=== PATIENT | female | born 1970 | race Asian ===

== ENCOUNTER 2017-05-10 10:41 | Emergency (ER) | payer BC, OTHER ==
[2017-05-10 10:46] VITALS: BP 158/92; PULSE 77; TEMP 98.5; BMI 29.2
--- NOTE | 2017-05-10 12:24 | PDOC ---
History of Present Illness - General Chief Complaint: Injury Stated Complaint: INJURY Time Seen by Provider: 05/10/17 11:12 History Source: Patient Exam Limitations: No Limitations - History of Present Illness Initial Comments: 05/10/17 12:20 CHIEF COMPLAINT: Slip on wet floor yesterday, braced her fall with her left hand now with pain to left hand and left lateral lower leg. HISTORY OF PRESENT ILLNESS: Patient is a 47-year-old female, history of diabetes and hypertension reports yesterday was walking the floor was wet she slipped and fell instead of hitting her head she braced her fall with a left hand now with bruising noted to left palm and pain to dorsum of left third finger also with superficial pain on palpation to left lateral lower leg good range of motion to hip. Ambulatory without difficulty. Incident occurred at work which prompted her to come to ER. MEDS:[ See medication list] ALLERGIES: Cipro, Levaquin[] REVIEW OF SYSTEMS: GENERAL/CONSTITUTIONAL: Awake alert and oriented HEAD, EYES, EARS, NOSE AND THROAT: No change in vision. No facial edema, no bruising. NO active bleeding. Nares intact. RESPIRATORY: No cough, wheezing, or hemoptysis. CARDIAC: Denies chest pain, no shortness of breathe. MUSCULOSKELETAL: No spinal point tenderness, Good ROM to all four extremeties. NO CVA tenderness. [No] lateral neck pain. Pain to dorsum of left third finger, bruising noted to palm of hand. GI/: Denies abdominal pain, no nausea or vomiting, no bloody stool, no Hematuria. SKIN : Bruising to palm of left hand otherwise physical examination is unremarkable NEUROLOGIC: No loss of consciousness, no numbness or tingling. PHYSICAL EXAM: GENERAL: Awake and alert and oriented x3. EYES: The pupils are equal, round, and reactive to light, with clear, conjunctiva. Good extraocular movement. No nystagmus NOSE: No nasal trauma . Midface stable MOUTH: Teeth intact. EARS: The ear canals and tympanic membranes are normal without trauma. No drainage. NECK: No Lower cervical C-spine tenderness, no pain with chin to chest. CHEST: The lungs are clear without crackles, or wheezes. No subcutaneous emphysema. No crepitus. HEART: Heart is regular rhythm, with normal S1 and S2, no murmurs. ABDOMEN: The abdomen is soft and nontender with normal bowel sounds. There is no guarding or rebound. MUSCULOSKELETAL: No spinal point tenderness. No bruising or erythema. Pelvis stable. RECTAL: Patient refused. EXTREMITIES: Extremities are normal. No visible traumatic injury. NEUROLOGICAL:Mental status: The patient is oriented x3. No Generalized headache , Romberg [-] Cranial nerves: Cranial nerves II through XII are intact Motor: The upper extremities are 5 over 5 in all muscle groups. The lower extremities are 5 over 5 in all muscle groups. Sensation: Sensation is intact to light touch throughout. Cerebellar: Xzrbqa-ijxmqh-[id number] is normal in both upper extremities. Heel-knee- crocker is normal in both lower extremities. Reflexes: 2+ and symmetric in the upper and lower extremities. Gait: Normal. Heel and toe walking are normal. Tandem gait is normal. SKIN: uising to palm of left hand otherwise physical examination is unremarkable Past History - Past Medical History Allergies/Adverse Reactions: Allergies Allergy/AdvReac Type Severity Reaction Status Date / Time ciprofloxacin [From Cipro] Allergy Nausea Verified 05/10/17 10:46 ciprofloxacin HCl Allergy Nausea Verified 05/10/17 10:46 [From Cipro] levofloxacin [From Levaquin] Allergy DIARRHEA Verified 05/10/17 10:46 Home Medications: Ambulatory Orders Bupropion HCl [Wellbutrin -] 300 mg PO DAILY 08/01/14 Omeprazole [Prilosec] 40 mg PO DAILY 08/01/14 Valsartan [Diovan] 40 mg PO DAILY 09/13/14 Anemia: Yes (IRON DEFICIENCY.) COPD: No Diabetes: Yes GI Disorders: Yes (GERD) HTN: Yes - Suicide/Smoking/Psychosocial Hx Smoking Status: Yes Smoking History: Current every day smoker Have you smoked in the past 12 months: Yes Number of Cigarettes Smoked Daily: 6 Information on smoking cessation initiated: No 'Breaking Loose' booklet given: 09/13/14 Hx Alcohol Use: No Drug/Substance Use Hx: No Substance Use Type: None *Physical Exam - Vital Signs Last Vital Signs Temp Pulse Resp BP Pulse Ox 98.5 F 77 16 158/92 100 05/10/17 10:44 05/10/17 10:44 05/10/17 10:44 05/10/17 10:44 05/10/17 10:44 ED Treatment Course - RADIOLOGY Radiology Studies Ordered: Category Date Time Status HAND- LEFT [RAD] Stat Radiology 05/10/17 11:16 Completed Medical Decision Making - Medical Decision Making 05/10/17 12:23 A/P: Patient with mechanical fall yesterday on wet floor pain to hand and left lateral lower leg, hip is intact, no bruising noted to leg pain is superficial left hand with bruising noted to palm, sent for x-rays negative for acute fracture will DC patient home anti-inflammatories for pain and follow up as needed. *DC/Admit/Observation/Transfer Diagnosis at time of Disposition: Accidental fall, Hand pain, left - Discharge Dispostion Disposition: HOME Condition at time of disposition: Stable Admit: No - Referrals Referrals: Art Frank MD [Primary Care Provider] - Austen Carranza MD [Staff Physician] - - Patient Instructions Additional Instructions: Motrin for pain, recommend follow-up with orthopedics in one week if pain persists - Post Discharge Activity Forms/Work/School Notes: Back to Work
== END 2017-05-10 12:57 | disposition home or self-care (01) ==
LOC: JERFT 10:41
DX: M79.602 Pain in left arm (principal); W01.0XXA Fall on same level from slipping, tripping and stumbling without subsequent striking against object, initial encounter; Y93.89 Activity, other specified; Y92.9 Unspecified place or not applicable; F17.210 Nicotine dependence, cigarettes, uncomplicated; I10 Essential (primary) hypertension; E11.9 Type 2 diabetes mellitus without complications; K21.9 Gastro-esophageal reflux disease without esophagitis
CPT/HCPCS: 73130-TC-LR-FY; 99281-25

== ENCOUNTER 2023-08-11 11:53 | Emergency (ER) | payer BC ==
[2023-08-11 12:17] VITALS: RESP 19; BMI 30.2
[2023-08-11] MEDS: FAMOTIDINE 20 MG/50 ML IVPB 20 MG/50 ML MG IVPB ONE (13:45)
[2023-08-11] MEDS: ACETAMINOPHEN 1000 MG/100 ML BAG IVPB ONE (13:45)
[2023-08-11] MEDS: ONDANSETRON 4 MG/2 ML VIAL IVPUSH ONE (13:45)
[2023-08-11] MEDS: SODIUM CHLORIDE 1,000 ML IV STA ×2 (13:45→16:31)
[2023-08-11] MEDS ORDERED: ONDANSETRON 4 MG/2 ML VIAL ONE (13:52)
[2023-08-11] MEDS ORDERED: FAMOTIDINE 20 MG/50 ML IVPB 20 MG/50 ML MG IVPB ONE (13:52)
[2023-08-11] MEDS ORDERED: ACETAMINOPHEN INJECTION 100 ML IVPB ONE (13:52)
[2023-08-11 13:54] LABS: BASO % 0.1 % (0-2.0); EOS % 0.5 % (0-4.5); HEMATOCRIT 46.2 % (32.4-45.2); HEMOGLOBIN 15.6 GM/dL (10.7-15.3); LYMPH % 7.3 % (8-40); MCHC 33.7 g/dl (32.0-36.0); MEAN PLT VOLUME 8.7 fl (7.5-11.1); MONO % 5.5 % (3.8-10.2); NEUT % 86.6 % (42.8-82.8); PLATELET COUNT 226 10^3/uL (134-434); RBC 5.57 M/mm3 (3.60-5.2); RDW 14.2 % (11.6-15.6); VENOUS BASE EXCESS 2.8 mmol/L (-2-2); VENOUS O2 SATURATION 27.5 % (70-80); VENOUS PCO2 46.2 mmHg (38-52); VENOUS PH 7.404 (7.310-7.410); WHITE BLOOD COUNT 9.8 K/mm3 (4.0-10.0)
[2023-08-11 14:21] LABS: ALBUMIN 3.2 g/dl (3.4-5.0); CALCIUM 7.3 mg/dL (8.5-10.1)
[2023-08-11 14:22] LABS: BLOOD UREA NITROGEN 13.7 mg/dL (7-18)
[2023-08-11 14:24] LABS: CREATININE 0.6 mg/dL (0.55-1.3)
[2023-08-11 14:25] LABS: BILIRUBIN,TOTAL 1.1 mg/dL (0.2-1)
[2023-08-11 14:26] LABS: TOT PROT 6.2 g/dl (6.4-8.2)
[2023-08-11] MEDS ORDERED: POTASSIUM CHLORIDE ORAL LIQUID 20 MEQ/15 ML ONE (15:10)
[2023-08-11] MEDS: POTASSIUM CHLORIDE ORAL LIQUID 20 MEQ/15 ML PO ONE (15:15)
[2023-08-11] MEDS: METOCLOPRAMIDE HCL INJECTION 10 MG/2 ML VIAL IVPUSH ONE (16:31)
[2023-08-11] MEDS ORDERED: METOCLOPRAMIDE HCL INJECTION 10 MG/2 ML VIAL ONE (16:32)
[2023-08-11] MEDS: METOCLOPRAMIDE HCL INJECTION 10 MG/2 ML VIAL IVPB ONE (16:32)
[2023-08-11 18:49] VITALS: BP 148/76; PULSE 93
[2023-08-11 18:53] VITALS: TEMP 99.8
== END 2023-08-11 19:20 | disposition home or self-care (01) ==
LOC: JER 11:53
PROC: 3E033GC Introduction of Other Therapeutic Substance into Peripheral Vein, Percutaneous Approach (ICD-10-PCS; principal; 2023-08-11)
PROC: 3E033NZ Introduction of Analgesics, Hypnotics, Sedatives into Peripheral Vein, Percutaneous Approach (ICD-10-PCS; 2023-08-11)
PROC: 3E033GC Introduction of Other Therapeutic Substance into Peripheral Vein, Percutaneous Approach (ICD-10-PCS; 2023-08-11)
PROC: 3E033GC Introduction of Other Therapeutic Substance into Peripheral Vein, Percutaneous Approach (ICD-10-PCS; 2023-08-11)
PROC: 3E0337Z Introduction of Electrolytic and Water Balance Substance into Peripheral Vein, Percutaneous Approach (ICD-10-PCS; 2023-08-11)
DX: R11.2 Nausea with vomiting, unspecified (principal); R19.7 Diarrhea, unspecified; R10.84 Generalized abdominal pain; R53.1 Weakness; R50.9 Fever, unspecified; R00.0 Tachycardia, unspecified; Z20.822 Contact with and (suspected) exposure to COVID-19
CPT/HCPCS: 0241U-QW; 36415; 80053; 82010; 82803; 83690; 84484; 84703; 85025; 93005; 93010; 99284-25; J0131